=== PATIENT | male | born 1995 | race Two or more races ===

== ENCOUNTER 2021-01-21 12:34 | Emergency (ER) | payer SELFPAY ==
[~2021-01-21] VITALS: Ht 180.3 cm; Wt 72.6 kg
[2021-01-21 12:37] VITALS: BP 112/67
== END 2021-01-21 12:44 | disposition left against medical advice (07) ==
LOC: ER 12:34 → EDBD 12:34 → ER 12:44
DX: R40.4 Transient alteration of awareness (principal); Z53.21 Procedure and treatment not carried out due to patient leaving prior to being seen by health care provider